=== PATIENT | male | born 1985 | race Caucasian/White ===

== ENCOUNTER 2023-03-25 13:33 | Emergency (ER) | payer OTHER ==
[~2023-03-25] VITALS: Ht 193 cm; Wt 110.7 kg
[2023-03-25 14:00] VITALS: BP 120/80; PULSE 89; RESP 20; TEMP 98.5; O2SAT 100
[2023-03-25] MEDS ORDERED: NACL 0.9% 1,000 ML IV SCH (15:30)
[2023-03-25] MEDS ORDERED: KETOROLAC 30 MG/ML VIAL IVP ONE (15:30)
--- NOTE | 2023-03-25 15:33 | NUR ---
PER WELD INSPECTOR . BLOOD GLUCOSE CHECKED 378 PT TO RADIOLOGY AT THIS TIME
--- NOTE | 2023-03-25 15:45 | NUR ---
TO BED 8
[2023-03-25 16:07] LABS: BASOPHILS % (AUTO) 0.5 % (0.0-2.0); EOSINOPHILS # (AUTO) 0.1 K/uL (0-0.4); EOSINOPHILS % (AUTO) 1.3 % (0.0-4.0); HEMATOCRIT 39.9 % (36-52); HEMOGLOBIN 13.8 g/dL (12.0-18.0); LYMPHOCYTES # (AUTO) 1.5 K/uL (2.0-11.5); LYMPHOCYTES % (AUTO) 17.7 % (20.5-51.1); MEAN CORPUSCULAR HEMOGLOBIN 32 pg (27-31); MEAN CORPUSCULAR HGB CONC 35 g/dL (33-37); MEAN CORPUSCULAR VOLUME 93.5 fL (80-94); MONOCYTES # (AUTO) 1.2 K/uL (0.8-1.0); MONOCYTES % (AUTO) 13.6 % (1.7-9.3); NEUTROPHILS # (AUTO) 5.7 K/uL (1.8-7.7); NEUTROPHILS % (AUTO) 66.9 % (42.2-75.2); PLATELET COUNT (AUTO) 204 K/uL (140-450); RED BLOOD CELL COUNT(AUTO) 4.27 MIL/uL (4.20-6.10); RED CELL DISTRIBUTION WIDTH 12.6 % (11.6-13.7); WHITE BLOOD COUNT (AUTO) 8.5 K/uL (4.8-10.8)
[2023-03-25 16:19] LABS: PROTHROMBIN TIME 9.4 secs (10.8-13.4)
[2023-03-25 16:21] LABS: ALBUMIN 3.2 g/dL (3.4-5.0); ANION GAP 14.6 (8-16); CARBON DIOXIDE 27.7 mmol/L (21-32); CREATININE 1.1 mg/dL (0.6-1.3); POTASSIUM 4.3 mmol/L (3.5-5.1); TOTAL BILIRUBIN 0.5 mg/dL (0.0-1.0)
[2023-03-25 16:24] LABS: ACETONE, SERUM NEGATIVE (NEGATIVE)
[2023-03-25] MEDS ORDERED: INSULIN REGULAR, HUMAN 100 UNIT/ML VIAL SUBQ ONE (16:35)
--- NOTE | 2023-03-25 16:36 | NUR ---
PT MEDICATED WITH TORADOL 30 MG IVP PER PROVIDER ORDERS
--- NOTE | 2023-03-25 17:00 | NUR ---
38 y/o male c/o right 3rd toe swelling x 3 days. 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 Patient has positive pedal pulse. Patient has + color, sensation and movement. Patient denies any fevers. Patient has been medicating with Ibuprofen at home. Call light at bedside. Medical History: DM ALLERGY: PENICILLIN
[2023-03-25] MEDS ORDERED: VANCOMYCIN 1,000 MG in DEXTROSE 5% 250 ML IV ONE (17:05)
[2023-03-25] MEDS ORDERED: INSU100I7 SQ (17:47)
[2023-03-25 18:03] LABS: APPEARANCE,URINE CLEAR (CLEAR); BILIRUBIN,URINE NEGATIVE (NEGATIVE); BLOOD, URINE NEGATIVE (NEGATIVE); COLOR,URINE YELLOW (YELLOW); LEUKOCYTE ESTERASE ,URINE NEGATIVE (NEGATIVE); NITRITE, URINE NEGATIVE (NEGATIVE); UGLUCOSE 3+ (NEGATIVE)
[2023-03-25 18:20] VITALS: BP 126/81; PULSE 84; RESP 16; TEMP 98.2; O2SAT 100
--- NOTE | 2023-03-25 18:20 | NUR ---
IV removed, catheter intact and site benign. Applied folded 4x4 gauze and tape to stop bleeding. Patient discharged with v/s stable. Written and verbal after care instructions given. Patient alert, oriented and verbalized understanding of instructions. Ambulatory with steady gait. All questions addressed prior to discharge. ID band removed. Patient advised to follow up with PMD. Rx of Basaglar given. Opportunity to ask questions provided and answered.
--- NOTE | 2023-03-25 19:02 | NUR ---
The patient's care was reviewed and supervised by JYOTI CHRISTIANSON RN.
== END 2023-03-25 18:20 | disposition home or self-care (01) ==
LOC: MED 13:33
DX: I73.9 Peripheral vascular disease, unspecified (principal); L03.031 Cellulitis of right toe; I99.8 Other disorder of circulatory system; E11.9 Type 2 diabetes mellitus without complications; M79.89 Other specified soft tissue disorders; Z79.899 Other long term (current) drug therapy; Z88.0 Allergy status to penicillin; Z98.890 Other specified postprocedural states
CPT/HCPCS: 36415; 73660; 80053; 81003; 82009; 82550; 82803; 82948; 83605; 83880; 85025; 85610; 85730; 87040; 96361; 96372; 96374; 99284; J1815; J1885; J7030

== ENCOUNTER 2023-03-27 05:25 | Emergency (ER) | payer OTHER ==
[~2023-03-27] VITALS: Ht 193 cm; Wt 114.8 kg
[~2023-03-27 05:25] MED LIST: INSU100I7 SQ
[2023-03-27 05:32] VITALS: BP 155/101; PULSE 86; RESP 18; TEMP 97.6; O2SAT 100
[2023-03-27 06:18] VITALS: O2SAT 100
--- NOTE | 2023-03-27 06:20 | NUR ---
C/O 2ND TOE ON THE RIGHT FOOT SWELLING AND [id number], WAS SEEN IN THE ED ON 03/25/23, APT WITH PRIMARY TODAY PMH: DM
--- NOTE | 2023-03-27 06:35 | NUR ---
DR TELLO IN TRIAGE FOR EVAL
[2023-03-27] MEDS ORDERED: AMOX-1230 PO (06:41)
[2023-03-27] MEDS ORDERED: DOXY-690 PO (06:41)
--- NOTE | 2023-03-27 07:18 | NUR ---
Patient discharged with v/s stable. Written and verbal after care instructions given and explained. Patient alert, oriented and verbalized understanding of instructions. Ambulatory with steady gait. All questions addressed prior to discharge. ID band removed. Patient advised to follow up with PMD. Rx of AMOX-CLAV, DOXYCYCLINE given. Patient educated on indication of medication including possible reaction and side effects. Opportunity to ask questions provided and answered.
== END 2023-03-27 07:18 | disposition home or self-care (01) ==
LOC: MED 05:25
DX: I70.221 Atherosclerosis of native arteries of extremities with rest pain, right leg (principal); L03.031 Cellulitis of right toe; E11.9 Type 2 diabetes mellitus without complications; Z79.899 Other long term (current) drug therapy; Z88.0 Allergy status to penicillin
CPT/HCPCS: 99283